=== PATIENT | female | born 1990 | race Two or more races ===

== ENCOUNTER 2018-09-04 13:41 | Emergency (ER) | payer MEDICAID, OTHER ==
--- NOTE | 2018-09-04 14:43 | ED ---
Palpitations / Dysrhythmia - HPI Summary HPI Summary: This patient is a 27 year old female presenting to [facility] with a chief complaint of heart palpitations since 6 days ago. Patient states that her palpitations are not the usual racing, fluttering palpitations, but describes it more as an occasional bubble/extra heartbeat. Patient states that the palpitations occur several times throughout the day, intermittently. Patient states that she first received these palpitations around 8 months ago, very rarely. Patient received a workup at the time, which was normal. The pain is rated 0/10 in severity. Symptoms aggravated by nothing. Symptoms alleviated by nothing. Patient denies dizziness, SOB, chest pain. - History of Current Complaint Chief Complaint: EDDysrhythmPalp Time Seen by Provider: 09/04/18 13:55 Hx Obtained From: Patient Onset/Duration: Lasting Days, Still Present Timing: Intermittent Episodes Lasting: Severity Currently: None Character: Irregular, Skipped Beats Aggravating: Nothing Alleviating: Nothing Associated Signs & Symptoms: Negative - dizziness, SOB, chest pain - Allergy/Home Medications Allergies/Adverse Reactions: Allergies Allergy/AdvReac Type Severity Reaction Status Date / Time No Known Allergies Allergy Verified 09/04/18 13:46 PMH/Surg Hx/FS Hx/Imm Hx Previously Healthy: Yes Opthamlomology History: Denies: Hx Legally Blind EENT History: Denies: Hx Deafness - Immunization History Immunizations Up to Date: Yes Infectious Disease History: No Infectious Disease History: Denies: Traveled Outside the [place] in Last 30 Days - Family History Known Family History: Negative: Hypertension - Social History Occupation: Student Alcohol Use: None Hx Substance Use: No Substance Use Type: Reports: None Hx Tobacco Use: No Smoking Status (MU): Never Smoked Tobacco Review of Systems Negative: Fever Positive: Palpitations. Negative: Chest Pain Negative: Shortness Of Breath Neurological: Negative - Dizziness All Other Systems Reviewed And Are Negative: Yes Physical Exam - Summary Physical Exam Summary: Appearance: The patient is well-nourished in no acute distress and in no acute pain. Skin: The skin is warm and dry and skin color reflects adequate perfusion. HEENT: The head is normocephalic and atraumatic. The pupils are equal and reactive. The conjunctivae are clear and without drainage. Nares are patent and without drainage. Mouth reveals moist mucous membranes and the throat is without erythema and exudate. The external ears are intact. The ear canals are patent and without drainage. The tympanic membranes are intact. Neck: The neck is supple with full range of motion and non-tender. There are no carotid bruits. There is no neck vein distension. Respiratory: Chest is non-tender. Lungs are clear to auscultation and breath sounds are symmetrical and equal. Cardiovascular: Heart is regular rate and rhythm. There is no murmur or rub auscultated. There is no peripheral edema and pulses are symmetrical and equal. Abdomen: The abdomen is soft and non-tender. There are normal bowel sounds heard in all four quadrants and there is no organomegaly palpated. Musculoskeletal: There is no back tenderness noted. Extremities are non-tender with full range of motion. There is good capillary refill. There is no peripheral edema or calf tenderness elicited. Neurological: Patient is alert and oriented to person, place and time. The patient has symmetrical motor strength in all four extremities. Cranial nerves are grossly intact. Deep tendon reflexes are symmetrical and equal in all four extremities. Psychiatric: The patient has an appropriate affect and does not exhibit any anxiety or depression. Triage Information Reviewed: Yes Vital Signs On Initial Exam: Initial Vitals Temp Pulse Resp BP Pulse Ox 98.5 F 79 18 120/76 98 09/04/18 13:44 09/04/18 13:44 09/04/18 13:44 09/04/18 13:44 09/04/18 13:44 Vital Signs Reviewed: Yes Diagnostics - Vital Signs Vital Signs Temp Pulse Resp BP Pulse Ox 09/04/18 13:44 98.5 F 79 18 120/76 98 - Laboratory Result Diagrams: 09/04/18 14:59 09/04/18 14:59 Lab Statement: Any lab studies that have been ordered have been reviewed, and results considered in the medical decision making process. - EKG 1354 Cardiac Rate: NL - 65 BPM Summary of EKG Findings: An EKG, taken 1354, reveals NSR (65 BPM), normal ST, no ectopy, no STEMI Course/Dx - Course Course Of Treatment: Ms. Ramon presented with a concern for palpitations. She is in feeling them frequently in the last couple of weeks but admits that they' ve been going on for a long time. She was kept on a monitor here while labs were checked. All her labs are normal and we did see a few PVCs on the monitor. She seemed to have a lot for PVCs that she had symptoms from not sure if they're related. I recommended close follow-up with her PCP may want to consider a Holter monitor and echo. She was very anxious about these and difficult to reassure. - Diagnoses Provider Diagnoses: Palpitation, PVCs (premature ventricular contractions) Discharge - Sign-Out/Discharge Documenting (check all that apply): Patient Departure Patient Received Moderate/Deep Sedation with Procedure: No - Discharge Plan Condition: Stable Disposition: HOME Patient Education Materials: Heart Palpitations (ED) Referrals: Brittnee Fisher MD [Primary Care Provider] - 3 Days Additional Instructions: Return to the ED for any new or worsening symptoms. - Billing Disposition and Condition Condition: STABLE Disposition: Home - Attestation Statements Document Initiated by Alvin: Yes Documenting Scribe: Taco Rapp Provider For Whom Alvin is Documenting (Include Credential): Ron Cruz MD Scribe Attestation: Taco Fleming, scribed for Ron Cruz MD on 09/05/18 at 1427. Scribe Documentation Reviewed: Yes Provider Attestation: The documentation as recorded by the Taco keating accurately reflects the service I personally performed and the decisions made by me, Ron Cruz MD Status of Scribe Document: Viewed
[2018-09-04 15:07] LABS: ABS Basophils 0 10^3/ul (0-0.2); ABS Eosinophils 0.1 10^3/ul (0-0.6); ABS Lymphocytes 1.5 10^3/ul (1.0-4.8); ABS Monocytes 0.6 10^3/ul (0-0.8); ABS Neutrophils 3.4 10^3/ul (1.5-7.7); ABS Nucleated RBC 0 10^3/ul; Eosinophil % 1.4 %; Hematocrit 39 % (33-41); Lymphocyte % 26.4 %; Mean Corpuscular HGB Conc 34 g/dL (31-36); Mean Corpuscular Hemoglobin 31 pg (27-31); Mean Corpuscular Volume 92 fL (80-97); Mean Platelet Volume 6.7 fL (7.4-10.4); Nucleated Red Blood Cells % 0.1; Platelet Count 301 10^3/uL (150-450); Red Blood Count 4.23 10^6 /uL (3.70-4.87); Red Cell Distribution Width 13 % (10.5-15); White Blood Count 5.6 10^3/uL (3.5-10.8)
[2018-09-04 15:17] LABS: INR 1.09 (0.77-1.02)
[2018-09-04 15:23] LABS: ALT 11 U/L (7-52); AST 16 U/L (13-39); Albumin 4.2 g/dL (3.2-5.2); Albumin/Globulin Ratio 1.5 (1-3); Alkaline Phosphatase 40 U/L (34-104); Anion Gap 4 mmol/L (2-11); BUN/Creatinine Ratio 13.9 (8-20); Blood Urea Nitrogen 10 mg/dL (6-24); CO2 Carbon Dioxide 28 mmol/L (22-32); Calcium 9.3 mg/dL (8.6-10.3); Chloride 106 mmol/L (101-111); EGFR African American 115.9 (>60); EGFR Non-African American 95.8 (>60); Globulin 2.8 g/dL (2-4); Glucose 100 mg/dL (70-100); Magnesium 2.2 mg/dL (1.9-2.7); Potassium 3.8 mmol/L (3.5-5.0); Sodium 138 mmol/L (135-145)
[2018-09-04 15:29] LABS: HCG Pregnancy < 0.60 mIU/mL
[2018-09-04 16:19] LABS: TSH (Thyroid Stimulating Horm) 2.57 mcIU/mL (0.34-5.60)
[2018-09-04 17:08] VITALS: BP 107/70
== END 2018-09-04 17:08 | disposition home or self-care (01) ==
LOC: ED 13:41
DX: R00.2 Palpitations (principal); I49.3 Ventricular premature depolarization
CPT/HCPCS: 36415; 80053; 83605; 83735; 84443; 84484; 84702; 85025; 85379; 85610; 93005; 99283

== ENCOUNTER → 2019-01-06 11:40 | Emergency (ER) | payer OTHER ==
[~2019-01-06 11:40] MED LIST: NS 0.9% 1000 ML** 1,000 ML IV ONE; diPHENhydraMINE IV* 50 MG/ML 1 ml VIAL (BENADRYL) SLOW PUSH ONE
--- NOTE | 2019-01-06 11:49 | ED ---
Allergic Reaction/Systemic - HPI Summary HPI Summary: This patient is a 28 year old F presenting to [facility] via EMS with a chief complaint of an allergic reaction since 0 today. 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 She thinks the wasp was yellow with black stripes. She notes a burning sensation in her chest that is now resolved and that her lungs felt as if she was sprinting after the bite. Pt was given Benadryl, epipen, and Dexamethasone by EMS. The patient rates the pain 0/10 in severity. Symptoms aggravated by nothing. Symptoms alleviated by taking Benadryl, epipen, and Dexamethasone. Patient reports itchiness, erythema of face. Pt denies any throat problems post wasp bite, fever, chills, erythema of eyes, sore throat, SOB, cough, abdominal pain, N/V, dysuria, hematuria, myalgia, edema, or dizziness. Pt feels safer at this time after taking medications. She denies any health problems, and takes a medicinal mushroom for wellness. - History of Current Complaint Hx Obtained From: Patient, EMS Onset/Duration: Sudden Onset, Started hours ago - 1, Still Present Timing: Constant, Lasting Hours - 1 Severity Initially: Mild Severity Currently: Mild Pain Intensity: 0 Pain Scale Used: 0-10 Numeric Character: Hives Aggravating Factor(s): Nothing Alleviating Factor(s): Other - by taking Benadryl, epipen, and Dexamethasone Associated Signs And Symptoms: Positive: Rash, Other: - positive - itchiness, erythema of face. negative - any throat problems post wasp bite, fever, chills, erythema of eyes, sore throat, SOB, cough, abdominal pain, N/V, dysuria, hematuria, myalgia, edema, or dizziness.. Negative: Throat Tightening - Allergies/Home Medications Allergies/Adverse Reactions: Allergies Allergy/AdvReac Type Severity Reaction Status Date / Time No Known Allergies Allergy Verified 09/04/18 13:46 PMH/Surg Hx/FS Hx/Imm Hx Previously Healthy: No Sensory History: Denies: Hx Legally Blind, Hx Deafness Opthamlomology History: Denies: Hx Legally Blind EENT History: Denies: Hx Deafness, Hx Auditory Problems - Surgical History Surgical History: None - Family History Known Family History: Negative: Hypertension - Social History Alcohol Use: None Hx Substance Use: No Substance Use Type: Reports: None Hx Tobacco Use: No Smoking Status (MU): Never Smoked Tobacco Do You Chew or Dip Tobacco: No Have You Chewed or Dipped Tobacco in the LAST YEAR: No Have You Smoked in the Last Year: No Review of Systems Negative: Fever, Chills Negative: Erythema ENT: Other - negative - throat tightening or other throat problems post wasp bite Negative: Sore Throat Negative: Shortness Of Breath, Cough Negative: Abdominal Pain, Vomiting, Nausea Negative: dysuria, hematuria Negative: Myalgia, Edema Skin: Other - positive - itchiness, erythema of face Positive: Rash Neurological: Other - negative - dizziness All Other Systems Reviewed And Are Negative: Yes Physical Exam - Summary Physical Exam Summary: Constitutional: Well-developed, Well-nourished, Alert. (-) Distressed Skin: Warm, Dry, Diffuse hives, no angioedema HENT: Normocephalic; Atraumatic Eyes: Conjunctiva normal Neck: Musculoskeletal ROM normal neck. (-) JVD, (-) Stridor, (-) Tracheal deviation Cardio: Rhythm regular, rate normal, Heart sounds normal; Intact distal pulses; The pedal pulses are 2+ and symmetric. Radial pulses are 2+ and symmetric. (-) Murmur Pulmonary/Chest wall: Effort normal. (-) Respiratory distress, (-) Wheezes, (-) Rales Abd: Soft, (-) tenderness, (-) Distension, (-) Guarding, (-) Rebound Musculoskeletal: (-) Edema Lymph: (-) Cervical adenopathy Neuro: Alert, Oriented x3 Psych: Mood and affect Normal Triage Information Reviewed: Yes Vital Signs Reviewed: Yes Allergic Reaction Course/Dx - Course Course Of Treatment: This patient is a 28 year old F presenting to [facility] via EMS with a chief complaint of an allergic reaction since 1030 today. 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 She thinks the wasp was yellow with black stripes. She notes a burning sensation in her chest that is now resolved and that her lungs felt as if she was sprinting after the bite. Pt was given Benadryl, epipen, and Dexamethasone by EMS. The patient rates the pain 0/10 in severity. Symptoms aggravated by nothing. Symptoms alleviated by taking Benadryl, epipen, and Dexamethasone. Patient reports itchiness, erythema of face. Pt denies any throat problems post wasp bite, fever, chills, erythema of eyes, sore throat, SOB, cough, abdominal pain, N/V, dysuria, hematuria, myalgia, edema, or dizziness. Pt feels safer at this time after taking medications. She denies any health problems, and takes a medicinal mushroom for wellness. Physical exam shows diffuse hives, no angioedema, no stridor, and no wheezes. During ED course, the pt was given Benadryl and fluids. Pt required 1 dose of epinephrine in the ambulance. She continued to improve in ED. She had no rebound reaction. Pt is agreeable to discharge. Pt was told to ice her left hand, follow up with her primary care provider within 2-3 days, and to return to the ED for any new or worsening symptoms. Dx is anaphylaxis. - Diagnoses Provider Diagnoses: Anaphylaxis Discharge - Sign-Out/Discharge Documenting (check all that apply): Patient Departure - discharge Patient Received Moderate/Deep Sedation with Procedure: No - Discharge Plan Condition: Stable Disposition: HOME Prescriptions: EPINEPHrine [Epipen 2-Reji] 0.3 mg IM ONCE PRN #2 inj PRN Reason: Allergy Symptoms predniSONE TAB* [Deltasone TAB*] 50 mg PO DAILY #4 tab Patient Education Materials: Insect Bite or Sting (ED), Anaphylaxis (ED) Forms: *Work Release Referrals: Brittnee Fisher MD [Primary Care Provider] - 2 Days Additional Instructions: Ice your left hand. Follow up with your primary care provider within 2-3 days. Return to the ED for any new or worsening symptoms. - Attestation Statements Document Initiated by Scribe: Yes Documenting Scribe: Isaías Cheema Provider For Whom Alvin is Documenting (Include Credential): Dr. Diaz Tirado MD Scribe Attestation: Isaías Fleming scribed for Dr. Diaz Tirado MD on 01/06/19 at 1551. Status of Scribe Document: Ready
--- OUTSIDE RECORDS SUMMARY | 2019-01-06 11:57 | XMS REPORT | Continuity of Care Document ---
:1990 External Reference #:[id number] Author Name Joseline Arcos Care Team Providers Name Role Phone Brittnee Fisher MD Primary Care Physician Unavailable Payers Date Identification Numbers Payment Provider Subscriber Expires: 2018 Policy Number: [id number] Medicaid Myesha Ramon Group Name: 1 1 [address] PayID: [id number] [place] [address] Policy Number: [id number] Jal Myesha Ramon Group Number: [id number] [address] Group Name: Medicaid Tanf/[place] [address] PayID: [id number] Social History Type Date Description Comments Sex Unknown Marital Status Single Lives With Roommate Occupation [employer] Tobacco Use Start: Unknown Patient has never smoked Smoking Status Reviewed: 01/05/19 Patient has never smoked Exercise Type/Frequency Exercises regularly Allergies, Adverse Reactions, Alerts Description No Known Drug Allergies Medications Active Medications SIG Qnty Indications Ordering Provider Date Choga Tea daily for general Unknown health History Medications No Active Medications Unknown 09/07/2018 - 01/05/2019 Famotidine 1 by mouth twice a day Unknown - 09/06/2018 20mg Tablets as needed for heartburn Clotrimazole Anti-Fungal apply to affected area Unknown - 1% Cream twice a day x 7days Vital Signs Date Vital Result Comment 01/05/2019 10:42am Height 63.5 inches 5'3.50" Weight 110.00 lb Heart Rate 76 /min BP Systolic Sitting 97 mmHg BP Diastolic Sitting 66 mmHg O2 % BldC Oximetry 98 % BMI (Body Mass Index) 19.2 kg/m2 09/07/2018 9:57am Height 63.5 inches 5'3.50" Weight 116.00 lb Heart Rate 81 /min BP Systolic 106 mmHg BP Diastolic 73 mmHg O2 % BldC Oximetry 98 % BMI (Body Mass Index) 20.2 kg/m2 06/30/2018 3:30pm Height 63.5 inches 5'3.50" Weight 114.00 lb Heart Rate 72 /min BP Systolic Sitting 99 mmHg BP Diastolic Sitting 64 mmHg Body Temperature 97.7 F O2 % BldC Oximetry 98 % BMI (Body Mass Index) 19.9 kg/m2 05/21/2018 4:45pm Height 63.5 inches 5'3.50" Weight 114.00 lb Heart Rate 73 /min BP Systolic 111 mmHg BP Diastolic 71 mmHg O2 % BldC Oximetry 100 % BMI (Body Mass Index) 19.9 kg/m2 05/18/2018 3:34pm Height 63.5 inches 5'3.50" Weight 114.00 lb Heart Rate 78 /min BP Systolic Sitting 97 mmHg BP Diastolic Sitting 64 mmHg Body Temperature 97.2 F O2 % BldC Oximetry 99 % BMI (Body Mass Index) 19.9 kg/m2 Results Test Date Facility Test Result H/L Range Note CBC Auto Diff 09/04/2018 [facility] White Blood 5.6 10^3/uL N 3.5-10.[address] [place] [address] [phone] Red Blood Count 4.23 10^6/uL N 3.70-4.87 Hemoglobin 13.0 g/dL N 12.0-16.0 Hematocrit 39 % N 33-41 Mean Corpuscular Volume 92 fL N 80-97 Mean Corpuscular Hemoglobin 31 pg N 27-31 Mean Corpuscular HGB Conc 34 g/dL N 31-36 Red Cell Distribution Width 13 % N 10.5-15 Platelet Count 301 10^3/uL N 150-450 Mean Platelet Volume 6.7 fL Low 7.4-10.4 Abs Neutrophils 3.4 10^3/uL N 1.5-7.7 Abs Lymphocytes 1.5 10^3/uL N 1.0-4.8 Abs Monocytes 0.6 10^3/uL N 0-0.8 Abs Eosinophils 0.1 10^3/uL N 0-0.6 Abs Basophils 0 10^3/uL N 0-0.2 Abs Nucleated RBC 0 10^3/uL Granulocyte % 61.7 % Lymphocyte % 26.4 % Monocyte % 9.9 % Eosinophil % 1.4 % Basophil % 0.6 % Nucleated Red Blood Cells % 0.1 Laboratory 09/04/2018 [facility] Lactic Acid 0.8 N 0.5-2.0 1 test finding [address] mmol/L [place], [place] [id number] [phone] Inr/Protime 09/04/2018 [facility] Inr 1.09 High 0.77-1.[address] [place] [address] [phone] Laboratory 09/04/2018 [facility] D Dimer 485 ng/mL High Less Than 2 test finding [address] Quantitative [address] [place] [address] [phone] Comp Metabolic 09/04/2018 [facility] Sodium 138 N 135-[address] mmol/[place] [address] [phone] Potassium 3.8 mmol/L N 3.5-5.0 Chloride 106 mmol/L N 101-111 Co2 Carbon Dioxide 28 mmol/L N 22-32 Anion Gap 4 mmol/L N 2-11 Glucose 100 mg/dL N 70-100 Blood Urea Nitrogen 10 mg/dL N 6-24 Creatinine 0.72 mg/dL N 0.51-0.95 BUN/Creatinine Ratio 13.9 N 8-20 Calcium 9.3 mg/dL N 8.6-10.3 Total Protein 7.0 g/dL N 6.4-8.9 Albumin 4.2 g/dL N 3.2-5.2 Globulin 2.8 g/dL N 2-4 Albumin/Globulin Ratio 1.5 N 1-3 Total Bilirubin 0.50 mg/dL N 0.2-1.0 Alkaline Phosphatase 40 U/L N 34-104 Alt 11 U/L N 7-52 Ast 16 U/L N 13-39 Egfr Non- 95.8 >60 Egfr 115.9 >60 3 Laboratory test 09/04/2018 [facility] Magnesium 2.2 mg/dL N 1.9-2.[address] [place] [address] [phone] Troponin-I (TnI) 0.00 ng/mL <0.04 4 HCG < 0.60 mIU/mL 5 TSH (Thyroid Stim Horm) 2.57 mcIU/mL N 0.34-5.60 1 [facility] Severe Sepsis and Septic Shock Management Bundle Measure requires all lactic acids initially measuring >2.0 mmol/L be repeated. 2 Please note: The following may produce a false positive D Dimer test: - Rheumatoid factor greater than 60 IU/ml - Plasma hemoglobin greater than 0.05 gm/dl - Bilirubin greater than 50 mg/dl - Lipids greater than 1000 mg/dl - FDP greater than 20 ug/ml 3 Because ethnic data is not always readily available, this report includes an eGFR for both -Americans and non- Americans. The National Kidney Disease Education Program (NKDEP) does not endorse the use of the MDRD equation for patients that are not between the ages of 18 and 70, are , have extremes of body size, muscle mass, or nutritional status, or are non- or non-. According to the National Kidney Foundation, irrespective of diagnosis, the stage of the disease is based on the level of kidney function: Stage Description GFR(mL/min/1.73 m(2)) 1 Kidney damage with normal or decreased GFR 90 2 Kidney damage with mild decrease in GFR 60-89 3 Moderate decrease in GFR 30-59 4 Severe decrease in GFR 15-29 5 Kidney failure <15 (or dialysis) 4 Troponin-I testing on Plasma Separator Tubes (PST) has a known false positive rate of 0.20-0.40%. All positive troponins reflex immediate secondary confirmatory testing. 5 <5.0 Negative 5.0 - 25.0 Indeterminate (Repeat testing recommended after 72 hours) >25.0 Positive Perimenopausal women can display HCG levels of up to 20 mIU/mL Procedures Date Code Description Status 10/10/2018 20375 Holter Monitor Review (24 hr)dr bellamy & vivianep only Completed 09/27/2018 13762 ECHO Transthoracic, Real-Time 2D With Doppler And Color Completed Flow 09/27/2018 80901 ECHO Transthoracic, Real-Time 2D With Doppler And Color Completed Flow 09/27/2018 93537 ECG Monitor/Recording W/Visual Superimposition Scanning Completed Encounters Type Date Location Provider Dx Diagnosis Office Visit 09/07/2018 [facility] Brittnee Fisher MD R00.2 Pal[facility]ations 10:[facility]2018 [facility] Internal Brittnee Fisher MD R10.32 Left lower quadrant 3:[facility]p [facility]/2018 [facility] Internal Brittnee Fisher MD M25.551 Pain in right [facility] 4:30p [facility]2018 [facility] Internal Brittnee Fisher MD M25.511 Pain in right 3:30p [facility] Rash and other nonspecific skin eruption F33.9 Major depressive disorder, recurrent, unspecified Plan of Treatment Future Appointment(s):03/02/2019 10:00 am - Brittnee Fisher MD at [facility] Internal Medicine - [address]/05/2019 - Brittnee Fisher MDK21.9 Gastro-esophageal reflux disease without esophagitisComments:Take omeprazole 20 mg as needed for reflux type symptoms.Follow up:F/U 8 weeks
[2019-01-06 15:26] VITALS: BP 100/63
== END | disposition home or self-care (01) ==
LOC: ED 11:40
DX: T78.2XXA Anaphylactic shock, unspecified, initial encounter (principal); Y92.9 Unspecified place or not applicable
CPT/HCPCS: 96361; 96374; 99283; J1200